=== PATIENT | female | born 1965 | race Caucasian/White ===

== ENCOUNTER → 2017-04-04 | Outpatient (CLI) | payer OTHER ==
[~2017-04-04] MED LIST: CLON0.5T3 PO; FAMO1TAB71 PO; IBUP-1459 PO; SERT50TA PO
[2017-04-04 12:56] LABS: ALT/SGPT 28 U/L (12-78); AST/SGOT 18 U/L (15-37); BLOOD UREA NITROGEN 14 mg/dl (7-18); BUN/CREATININE RATIO 15.9 (10-20); CALCIUM 9.1 mg/dl (8.5-10.1); CARBON DIOXIDE 29 mmol/L (21-32); CHLORIDE 111 mmol/L (98-107); CREATININE 0.91 mg/dl (0.60-1.20); GLUCOSE 101 mg/dl (70-99); POTASSIUM 4.2 mmol/L (3.5-5.1); SODIUM 142 mmol/L (136-145)
[2017-04-04 12:59] LABS: ALKALINE PHOSPHATASE 54 U/L (45-117); CHOLESTEROL 212 mg/dl (0-200); CHOLESTEROL/HDL RATIO 3.3; HDL CHOLESTEROL 65 mg/dl; LDL CHOLESTEROL CALCULATED 134 mg/dl; TRIGLYCERIDES 66 mg/dl (0-150); VERY LOW DENSITY LIPOPROT CALC 13 mg/dl
== END | disposition home or self-care (01) ==
LOC: C.LABBFT 08:21
PROVIDERS: ATTEND Nurse Practitioner
DX: E78.5 Hyperlipidemia, unspecified (principal); E55.9 Vitamin D deficiency, unspecified

== ENCOUNTER → 2017-11-12 | Outpatient (CLI) | payer OTHER ==
[~2017-11-12] MED LIST changes: +FAMO-103 PO; -FAMO1TAB71 PO
--- NOTE | 2017-11-12 09:19 | DIAGNOSTIC IMAGING REPORT ---
PELVIC COMPLETE NON OB, TRANSVAG-FEMALE PELVIS CLINICAL HISTORY: 52 years-old Female presenting with D25.9 Uterine [id number], history of remote D&C, no abnormal bleeding. TECHNIQUE: Real-time grayscale and color and spectral Doppler ultrasound imaging of the pelvis was performed first using a transabdominal probe and subsequently transvaginal for better characterization. COMPARISON: None. FINDINGS: Uterus: Round hypoechoic lesion arising from the right mid aspect of the uterus in a subserosal or peripheral intramural location, likely uterine fibroid. This measures 1.4 x 0.9 x 1.2 cm. Anteverted anteflexed. The uterus measures 5.5 x 2.5 x 3.7 cm. Endometrial stripe measures 2 mm in thickness. Endometrium normal-appearing. Right adnexa: The candidate right ovary measures 2.3 x 1.9 x 2.6 and contains numerous hyperechogenic foci. Apparent exophytic hypoechoic lesion arising from the right ovary measures 1.3 x 1.2 x 1.2 cm. Normal color Doppler flow and arterial and venous waveforms within the presumed ovarian parenchyma. Left adnexa: Left ovary normal. Left ovary measures 1.1 x 1.7 x 0.9 cm. Normal color Doppler flow and arterial and venous waveforms within the ovarian parenchyma. Other: No free fluid. IMPRESSION: 1. Small subserosal or peripheral intramural uterine fibroid. 2. Normal endometrium. 3. The right ovary may contain few foci of calcification. Less likely this may represent a nonperistalsing loop of bowel. Apparent exophytic right ovarian lesion is indeterminate and may be solid. Further evaluation with follow-up pelvic ultrasound in 4-6 weeks or contrast-enhanced MR of the pelvis could be considered. The report will be called/faxed according to standard departmental protocol. Electronically signed by: Peterson Dyer M.D. 11/12/2017 9:17 AM Dictated Date/Time: 11/12/2017 9:07 AM
== END | disposition home or self-care (01) ==
LOC: C.ULTR 08:02
PROVIDERS: ATTEND Nurse Practitioner
DX: D25.9 Leiomyoma of uterus, unspecified (principal)

== ENCOUNTER → 2017-11-12 | Outpatient (CLI) | payer OTHER | END | disposition home or self-care (01) | LOC: C.MAMM 08:53 | PROVIDERS: ATTEND Nurse Practitioner | DX: M85.88 Other specified disorders of bone density and structure, other site (principal) ==

== ENCOUNTER → 2017-11-14 | Outpatient (CLI) | payer OTHER ==
[~2017-11-14] MED LIST changes: +GADAVIST IV PRN
--- NOTE | 2017-11-14 09:33 | DIAGNOSTIC IMAGING REPORT ---
MRI THE PELVIS WITHOUT A WITH GADOLINIUM CLINICAL HISTORY: Abdominal ultrasound. Right ovarian lesion. COMPARISON STUDY: Pelvic ultrasound dated November 12, 2017 FINDINGS: Imaging was performed in the sagittal coronal and axial planes. Pre and post gadolinium images were acquired. The patient was injected with 9 cc of intravenous Gadavist. There are no suspicious areas of marrow replacement. The bladder is mildly trabeculated. There is no pathologic adenopathy. No ascites is visualized. The endometrium is of normal thickness. There is a 1 cm right myometrial mass, most consistent with a fibroid. There is a 2 cm T1 bright lesion within the right ovary. There is no fat suppression on the fat suppression images. The lesion demonstrates decreased T2 signal. The signal characteristics are suggestive of an endometrioma. No pathologic left ovarian masses are visualized. IMPRESSION: 1. 2 cm right ovarian mass with signal characteristics strongly suggestive of an endometrioma. A 6 month follow-up ultrasound study is recommended to ensure stability. 2. 1 cm right uterine fibroid 3. No evidence of pathologic adenopathy. No ascites identified. Electronically signed by: Timothy Polo M.D. 11/14/2017 9:32 AM Dictated Date/Time: 11/14/2017 9:25 AM
== END | disposition home or self-care (01) ==
LOC: C.MRI 08:07
PROVIDERS: ATTEND Nurse Practitioner
DX: N83.9 Noninflammatory disorder of ovary, fallopian tube and broad ligament, unspecified (principal); R93.5 Abnormal findings on diagnostic imaging of other abdominal regions, including retroperitoneum

== ENCOUNTER 2018-10-07 10:59 | Observation (INO) ==
[2018-10-07] MEDS ORDERED: SODIUM CHLORIDE 0.9% 1000ML 1,000 ML IV SCH (11:45)
[2018-10-07 12:24] LABS: Basophils # (auto) 0.01 K/uL (0-0.2); Hematocrit (blood only) 33.6 % (37-47); Hemoglobin 11.6 g/dL (12.0-16.0); Immature Granulocytes # (auto) 0.76 K/uL (0.00-0.02); Immature Granulocytes % (auto) 3.5 %; Lymphocytes # (auto) 0.43 K/uL (1.2-3.4); Mean Corpuscular Hgb Conc 34.5 g/dL (32-36); Mean Corpuscular Volume 94.1 fL (80-100); Mean Platelet Volume 9.5 fL (7.4-10.4); Monocytes # (auto) 0.24 K/uL (0.11-0.59); Monocytes % (auto) 1.1 %; Neutrophils % (auto) 93.4 %; Platelet Count 186 K/uL (130-400); RDW Coefficient of Variation 14.1 % (11.5-14.5); RDW Standard Deviation 48.8 fL (36.4-46.3); Red Blood Count 3.57 M/uL (4.2-5.4); White Blood Count 21.44 K/uL (4.8-10.8)
--- NOTE | 2018-10-07 12:26 | XRay Report ---
XR chest 1V portable CLINICAL HISTORY: Chest Pain pain COMPARISON STUDY: 09/20/2018 FINDINGS: Chronic elevation left hemidiaphragm. Lungs are clear. Diaphragms are smooth. IMPRESSION: Chronic change. No acute process. The above report was generated using voice recognition software. It may contain grammatical, syntax or spelling errors. Electronically signed by: Checo Mondragon M.D. 10/07/2018 12:25 PM
[2018-10-07 12:42] LABS: Alanine Aminotransferase 25 U/L (12-78); Albumin Level 3.1 gm/dl (3.4-5.0); Aspartate Aminotransferase 26 U/L (15-37); BUN Creatinine Ratio 17.4 (10-20); Blood Urea Nitrogen 14 mg/dl (7-18); Calcium 7.8 mg/dl (8.5-10.1); Carbon Dioxide 24 mmol/L (21-32); Chloride 103 mmol/L (98-107); Creatinine Clr Calc Pharmacy 98.8 ml/min; Est GFR (African American) 99.2; Est GFR (Non-African American) 85.6; Glucose 108 mg/dl (70-99); Potassium 3.3 mmol/L (3.5-5.1); Sodium 134 mmol/L (136-145)
[2018-10-07 12:47] LABS: Albumin Globulin Ratio 0.8 (0.9-2); Alkaline Phosphatase 74 U/L (45-117); Bilirubin,Total 0.5 mg/dl (0.2-1); Total Protein 7.1 gm/dl (6.4-8.2); Troponin I < 0.015 ng/ml (0-0.045)
[2018-10-07] MEDS ORDERED: SODIUM CHLORIDE 0.9% 1000ML 1,000 ML IV ONE (14:01)
[2018-10-07] MEDS ORDERED: IOVERSOL 100ml IV PRN (14:30)
--- NOTE | 2018-10-07 14:57 | Emergency Department Note ---
Entered by Kaylah Bates acting as a scribe for History of Present Illness General Chief complaint: Syncope Stated complaint: PASSED OUT, DIARRHEA, NAUSEA - REF BY Time Seen by Provider: 10/07/18 11:37 Source: patient Limitations: no limitations History of Present Illness Provider complaint: syncope Onset (ago): hour(s) Location: head Maximum Pain Intensity: 4 Associated symptoms: + denies other symptoms (burning or blood with urination), + cough, + fever/chills and + other (+diarrhea, +fatigue, +hallucinations); no nausea/vomiting Treatments prior to arrival: none The patient is a 53 year old female who presents to the Emergency Room with complaints of a syncopal episode that occurred hours prior to arrival while she was getting out of the shower. The patient states that she has fevers, cough, hallucinations, diarrhea, and fatigue. The patient denies any vomiting, burning or blood in urination. The patient states that she was diagnosed in July with ovarian cancer and states that she received chemotherapy treatment 3 days prior to arrival. The patient states that she took Neulasta 2 days prior to arrival and states that it made her whole body ache so she was then given Tramadol for the pain. The patient states that she last took Tramadol 1 day prior to arrival. The patient states that she had the flu 2 weeks prior to arrival and states that she was on antibiotics. The patient denies having a port. Home Medications Home Medications Medication Instructions Recorded Confirmed Type ascorbic acid (vitamin C) 500 mg PO DAILY 09/20/18 10/07/18 History bisacodyl 10 mg WV DAILY PRN 09/20/18 10/07/18 History cholecalciferol (vitamin D3) 1,000 unit PO DAILY 09/20/18 10/07/18 History cyanocobalamin (vitamin B-12) 1,000 mcg PO DAILY 09/20/18 10/07/18 History dexamethasone 5 tab PO DIRECTED 09/20/18 10/07/18 History lactulose 30 ml PO BID 09/20/18 10/07/18 History lorazepam 0.5 mg PO Q6H PRN 09/20/18 10/07/18 History magnesium 200 mg PO DAILY 09/20/18 10/07/18 History multivitamin 1 tab PO DAILY 09/20/18 10/07/18 History ondansetron 8 mg PO Q8H PRN 09/20/18 10/07/18 History polyethylene glycol 3350 17 g PO DAILY PRN 09/20/18 10/07/18 History prochlorperazine maleate 10 mg PO Q6H PRN 09/20/18 10/07/18 History [Compazine] sertraline 50 mg PO DAILY 09/20/18 10/07/18 History pegfilgrastim [Neulasta] 1 dose SUBCUT DIRECTED 10/07/18 10/07/18 History tramadol 50 mg PO Q6 PRN 10/07/18 10/07/18 History Allergies Allergy/AdvReac Type Severity Reaction Status Date / Time No Known Allergies Allergy Unverified 10/07/18 11:39 Past Med/Surg History Medical History Anxiety (Chronic) Hyperlipemia No significant past surgical history Ovarian cancer (Chronic) Family History Other No significant family history Social History Current Living Situation: Spouse Other Information That Helps Us Care for You: No Feels Safe at Home: Yes Safety Concerns: Feels Safe At This Time Smoking Status: Current every day smoker Hx Alcohol Use: No Hx Substance Use: No Beliefs That Will Affect Care: None Preferred Language: Slovak Communication Ability: Effective [employer] Heat [employer]der Required: No Review of Systems See HPI for pertinent positives & negatives. and A total of 10 systems reviewed and were otherwise negative Physical Exam Vital Signs Vital Signs - 24 hr 10/07/18 12:05 10/07/18 12:47 10/07/18 13:00 Temperature Temperature Source Pulse Rate 117 H 84 79 Pulse Rate [Bilateral Finger] Pulse Rate from SpO2 Sensor 80 Respiratory Rate 18 16 17 Respiratory Depth Blood Pressure 119/72 110/58 L Blood Pressure [Left Arm] Blood Pressure Mean 87 75 Blood Pressure Mean [Left Arm] Blood Pressure Position [Left Arm] Pulse Oximetry 95 92 91 Oxygen Delivery Method Room Air Room Air 10/07/18 13:30 10/07/18 14:00 10/07/18 15:31 Temperature Temperature Source Pulse Rate 80 86 81 Pulse Rate [Bilateral Finger] Pulse Rate from SpO2 Sensor 80 89 80 Respiratory Rate 20 18 22 Respiratory Depth Blood Pressure 124/58 L 117/73 136/85 Blood Pressure [Left Arm] Blood Pressure Mean 80 87 102 Blood Pressure Mean [Left Arm] Blood Pressure Position [Left Arm] Pulse Oximetry 93 96 93 Oxygen Delivery Method 10/07/18 16:01 10/07/18 16:31 10/07/18 17:01 Temperature Temperature Source Pulse Rate 79 80 82 Pulse Rate [Bilateral Finger] Pulse Rate from SpO2 Sensor 78 80 83 Respiratory Rate 18 19 18 Respiratory Depth Blood Pressure 133/79 147/81 H 148/85 H Blood Pressure [Left Arm] Blood Pressure Mean 97 103 106 Blood Pressure Mean [Left Arm] Blood Pressure Position [Left Arm] Pulse Oximetry 92 94 96 Oxygen Delivery Method Room Air 10/07/18 17:06 10/07/18 17:37 10/07/18 23:46 Temperature 36.8 C 37.3 C Temperature Source Oral Oral Pulse Rate 82 Pulse Rate [Bilateral Finger] 83 81 Pulse Rate from SpO2 Sensor Respiratory Rate 18 16 16 Respiratory Depth Normal Blood Pressure 148/85 H Blood Pressure [Left Arm] 137/74 144/75 H Blood Pressure Mean Blood Pressure Mean [Left Arm] 95 98 Blood Pressure Position [Left Arm] Lying Lying Pulse Oximetry 96 95 94 Oxygen Delivery Method Room Air Room Air Room Air 10/08/18 05:43 10/08/18 07:35 Temperature 36.9 C 36.6 C Temperature Source Oral Oral Pulse Rate Pulse Rate [Bilateral Finger] 86 78 Pulse Rate from SpO2 Sensor Respiratory Rate 20 18 Respiratory Depth Blood Pressure Blood Pressure [Left Arm] 145/78 H 138/80 Blood Pressure Mean Blood Pressure Mean [Left Arm] 100 99 Blood Pressure Position [Left Arm] Lying Pulse Oximetry 96 95 Oxygen Delivery Method Room Air Room Air General: Chronically-ill appearing middle-aged female in no acute distress. HEENT: Normal cephalic atraumatic. Pupils are equal round and reactive to light. Extraocular movements are intact. Oropharynx is pink with moist mucous membranes. No swelling of the mouth lips or tongue. Neck: Supple with a midline trachea. No meningeal signs or stiffness, no JVD or bruits. No Stridor. Chest: Clear to auscultation bilaterally. No wheezes or rhonchi. No increased work of breathing. Heart: regular rate and rhythm. Abdomen: Soft nontender, nondistended without rebound guarding or rigidity. Extremities: No cyanosis clubbing or edema. No calf tenderness or assymetry Spine/Back. Non tender to palpation. No CVA tenderness Skin: Good turgor without rashes. Neurologic exam: Cranial nerves two through 12 are intact. Motor and sensation are intact and symmetrical throughout. Course 1138: Past medical records reviewed. The patient was evaluated in room C8, and a complete history and physical examination were performed. 1225: I checked on and updated the patient on her results. The patient is feeling better but has a high white count. A CT of the abdomen was ordered. 1515: I [facility] the [facility] who will evaluate the patient for further hospitalization. Consultations Consultation #1[facility] Time: 15:15 Administered Medications Enoxaparin Sodium (Lovenox) 40 mg SQ Q24H TARI Stop: 11/07/18 08:59 Last Admin: 10/08/18 09:13 Dose: 40 mg Magnesium Oxide (Mag-Ox) 400 mg PO DAILY TARI Stop: 11/07/18 08:59 Last Admin: 10/08/18 08:19 Dose: 400 mg Ondansetron HCl (Zofran) 4 mg IV Q6H PRN PRN Reason: Nausea Stop: 11/06/18 17:27 Last Admin: 10/07/18 19:41 Dose: 4 mg Sertraline HCl (Zoloft) 50 mg PO HS TARI Stop: 11/06/18 21:14 Last Admin: 10/07/18 21:06 Dose: 50 mg Discontinued Medications Sodium Chloride (Nss 1000ml) 1,000 mls @ 999 mls/hr IV .Q1H1M TARI Stop: 10/07/18 12:45 Last Infusion: 10/07/18 13:53 Dose: 0 mls/hr Admin: 10/07/18 12:45 Dose: 999 mls/hr Sodium Chloride (Nss 1000ml) 1,000 mls @ 999 mls/hr IV .Q1H1M ONE Stop: 10/07/18 15:01 Last Infusion: 10/07/18 15:27 Dose: 0 mls/hr Admin: 10/07/18 14:17 Dose: 999 mls/hr Sodium Chloride (Nss 1000ml) 1,000 mls @ 125 mls/hr IV .Q8H TARI Stop: 10/08/18 09:27 Last Infusion: 10/08/18 09:20 Dose: 0 mls/hr Admin: 10/08/18 01:00 Dose: 125 mls/hr Infusion: 10/08/18 01:00 Dose: 125 mls/hr Admin: 10/07/18 17:59 Dose: 125 mls/hr Ioversol (Optiray 320 100ml) 94 ml IV ONCE PRN PRN Reason: Interaction Checking Stop: 10/11/18 14:29 Last Admin: 10/07/18 14:31 Dose: 94 ml Medical Decision Making Differential Diagnosis The patient is a 53 year old female who presents to the ED with syncope. Differential diagnosis includes dehydration, clostridium difficile, cancer complications, sepsis, electrolyte or metabolic abnormalities Medical Records Attestation: I reviewed the patient's medical records. Home Medications Current Medication List: was personally reviewed by me Laboratory Data Attestation: I reviewed the patient's lab results. Result diagrams: 10/08/18 06:21 10/08/18 06:21 Lab Results 10/07/18 10/07/18 10/07/18 Range/Units 12:09 12:09 12:09 WBC 21.44 H (4.8-10.8) K/uL RBC 3.57 L (4.2-5.4) M/uL Hgb 11.6 L (12.0-16.0) g/dL Hct 33.6 L (37-47) % MCV 94.1 (80-100) fL MCH 32.5 (25-34) pg MCHC 34.5 (32-36) g/dL RDW Std Deviation 48.8 H (36.4-46.3) fL RDW Coeff of Haim 14.1 (11.5-14.5) % Plt Count 186 (130-400) K/uL MPV 9.5 (7.4-10.4) fL Immature Gran % (Auto) 3.5 % Neut % (Auto) 93.4 % Lymph % (Auto) 2.0 % Mcmullen % (Auto) 1.1 % Eos % (Auto) 0.0 % Baso % (Auto) 0.0 % Immature Gran # (Auto) 0.76 H (0.00-0.02) K/uL Neut # (Auto) 20.00 H (1.4-6.5) K/uL Lymph # (Auto) 0.43 L (1.2-3.4) K/uL Mcmullen # (Auto) 0.24 (0.11-0.59) K/uL Eos # (Auto) 0.00 (0-0.5) K/uL Baso # (Auto) 0.01 (0-0.2) K/uL PT (9.0-12.0) Seconds INR (0.9-1.1) APTT (21.0-31.0) Seconds PTT Ratio Sodium 134 L (136-145) mmol/L Potassium 3.3 L (3.5-5.1) mmol/L Chloride 103 (98-107) mmol/L Carbon Dioxide 24 (21-32) mmol/L Anion Gap 7.0 (3-11) BUN 14 (7-18) mg/dl Creatinine 0.78 (0.6-1.2) mg/dl Est Cr Clr Drug Dosing 98.8 ml/min Est GFR ( Amer) 99.2 Est GFR (Non-Af Amer) 85.6 BUN/Creatinine Ratio 17.4 (10-20) Glucose 108 H (70-99) mg/dl POC Lactic Acid Nicolás (0.90-1.70) mmol/L Calcium 7.8 L (8.5-10.1) mg/dl Phosphorus 2.5 Cancelled (2.5-4.9) mg/dl Magnesium 2.1 Cancelled (1.8-2.4) mg/dl Total Bilirubin 0.5 (0.2-1) mg/dl AST 26 (15-37) U/L ALT 25 (12-78) U/L Alkaline Phosphatase 74 (45-117) U/L Troponin I < 0.015 (0-0.045) ng/ml Total Protein 7.1 (6.4-8.2) gm/dl Albumin 3.1 L (3.4-5.0) gm/dl Globulin 4.0 (2.5-4.0) gm/dl Albumin/Globulin Ratio 0.8 L (0.9-2) Lipase 54 L (73-393) U/L 10/07/18 10/08/18 10/08/18 Range/Units 12:18 06:21 06:21 WBC 16.53 H (4.8-10.8) K/uL RBC 3.37 L (4.2-5.4) M/uL Hgb 10.9 L (12.0-16.0) g/dL Hct 31.6 L (37-47) % MCV 93.8 (80-100) fL MCH 32.3 (25-34) pg MCHC 34.5 (32-36) g/dL RDW Std Deviation 49.5 H (36.4-46.3) fL RDW Coeff of Haim 14.4 (11.5-14.5) % Plt Count 145 (130-400) K/uL MPV 9.7 (7.4-10.4) fL Immature Gran % (Auto) 0.8 % Neut % (Auto) 93.5 % Lymph % (Auto) 4.5 % Mcmullen % (Auto) 0.8 % Eos % (Auto) 0.3 % Baso % (Auto) 0.1 % Immature Gran # (Auto) 0.14 H (0.00-0.02) K/uL Neut # (Auto) 15.44 H (1.4-6.5) K/uL Lymph # (Auto) 0.75 L (1.2-3.4) K/uL Mcmullen # (Auto) 0.14 (0.11-0.59) K/uL Eos # (Auto) 0.05 (0-0.5) K/uL Baso # (Auto) 0.01 (0-0.2) K/uL PT (9.0-12.0) Seconds INR (0.9-1.1) APTT (21.0-31.0) Seconds PTT Ratio Sodium 139 (136-145) mmol/L Potassium 3.5 (3.5-5.1) mmol/L Chloride 110 H (98-107) mmol/L Carbon Dioxide 25 (21-32) mmol/L Anion Gap 4.0 (3-11) BUN 10 (7-18) mg/dl Creatinine 0.61 (0.6-1.2) mg/dl Est Cr Clr Drug Dosing 127.3 ml/min Est GFR ( Amer) 118.3 Est GFR (Non-Af Amer) 102.1 BUN/Creatinine Ratio 16.1 (10-20) Glucose 98 (70-99) mg/dl POC Lactic Acid Nicolás 0.86 L (0.90-1.70) mmol/L Calcium 7.8 L (8.5-10.1) mg/dl Phosphorus (2.5-4.9) mg/dl Magnesium (1.8-2.4) mg/dl Total Bilirubin (0.2-1) mg/dl AST (15-37) U/L ALT (12-78) U/L Alkaline Phosphatase (45-117) U/L Troponin I (0-0.045) ng/ml Total Protein (6.4-8.2) gm/dl Albumin (3.4-5.0) gm/dl Globulin (2.5-4.0) gm/dl Albumin/Globulin Ratio (0.9-2) Lipase (73-393) U/L 10/08/18 Range/Units 06:21 WBC (4.8-10.8) K/uL RBC (4.2-5.4) M/uL Hgb (12.0-16.0) g/dL Hct (37-47) % MCV (80-100) fL MCH (25-34) pg MCHC (32-36) g/dL RDW Std Deviation (36.4-46.3) fL RDW Coeff of Haim (11.5-14.5) % Plt Count (130-400) K/uL MPV (7.4-10.4) fL Immature Gran % (Auto) % Neut % (Auto) % Lymph % (Auto) % Mcmullen % (Auto) % Eos % (Auto) % Baso % (Auto) % Immature Gran # (Auto) (0.00-0.02) K/uL Neut # (Auto) (1.4-6.5) K/uL Lymph # (Auto) (1.2-3.4) K/uL Mcmullen # (Auto) (0.11-0.59) K/uL Eos # (Auto) (0-0.5) K/uL Baso # (Auto) (0-0.2) K/uL PT 10.8 (9.0-12.0) Seconds INR 1.1 (0.9-1.1) APTT 26.5 (21.0-31.0) Seconds PTT Ratio 1.0 Sodium (136-145) mmol/L Potassium (3.5-5.1) mmol/L Chloride (98-107) mmol/L Carbon Dioxide (21-32) mmol/L Anion Gap (3-11) BUN (7-18) mg/dl Creatinine (0.6-1.2) mg/dl Est Cr Clr Drug Dosing ml/min Est GFR ( Amer) Est GFR (Non-Af Amer) BUN/Creatinine Ratio (10-20) Glucose (70-99) mg/dl POC Lactic Acid Nicolás (0.90-1.70) mmol/L Calcium (8.5-10.1) mg/dl Phosphorus (2.5-4.9) mg/dl Magnesium (1.8-2.4) mg/dl Total Bilirubin (0.2-1) mg/dl AST (15-37) U/L ALT (12-78) U/L Alkaline Phosphatase (45-117) U/L Troponin I (0-0.045) ng/ml Total Protein (6.4-8.2) gm/dl Albumin (3.4-5.0) gm/dl Globulin (2.5-4.0) gm/dl Albumin/Globulin Ratio (0.9-2) Lipase (73-393) U/L Imaging Data Radiologist's Impression: Radiology results as stated below per my review and the radiologist's interpretation: XR chest 1V portable CLINICAL HISTORY: Chest Pain pain COMPARISON STUDY: 09/20/2018 FINDINGS: Chronic elevation left hemidiaphragm. Lungs are clear. Diaphragms are smooth. IMPRESSION: Chronic change. No acute process. The above report was generated using voice recognition software. It may contain grammatical, syntax or spelling errors. Electronically signed by: Checo Mondragon M.D. 10/07/2018 12:25 PM ECG Data Attestation: I personally reviewed and interpreted this ECG as follows: Indication: syncope Rate (beats per minute): 87 Findings: no acute ischemic change and no ectopy Comparison ECG Date: from (07/14/15) Change: no significant change Blood Pressure Blood Pressure Findings: Normal blood pressure MDM Narrative This patient comes in as described above. She was placed in room C8. She is here for treatment and evaluation of nausea vomiting and diarrhea. She does have ovarian cancer and was recently started on chemo. She says she felt bad after taking the last and then took some pain medications with Ultram and started vomiting she had diarrhea she passed out at home as well. She denies any chest pain. She denies abdominal pain. IV access was established and she was hydrated 2 L IV normal saline while she was here she looks better . I was concerned white count is significantly elevated over 20,000. This may be from stress or Neulasta. She has no significant electrolyte or metabolic abnormalities her EKG does not suggest any definite arrhythmia or acute coronary syndrome. She did have a CAT scan of her abdomen as well and shows an ileus but no obstruction or surgical process. Given the fact that she is being treated for cancer as well as had a syncopal episode and has a high white count I do think she should be observed. I do think she is dehydrated likely from a GI process. I have consulted the hospitalist to see her for these measures per Impression & Plan Syncope, Dehydration, Ovarian cancer, Diarrhea Discharge Plan Visit Data *Final* Discharge Date/Time: 10/07/18 17:06 Chief Complaint: Syncope Stated Complaint: PASSED OUT, DIARRHEA, NAUSEA - REF BY ED Provider: Martin Zapata Discharge Problem: Syncope, Dehydration, Ovarian cancer, Diarrhea Patient Disposition: Admitted As Inpatient Discharge Instructions Interventions: ED Discharge Assessment Last Done: 10/07/18 17:06 The scribe's documentation has been prepared under my direction and personally reviewed by me in its entirety. I confirm that the note above accurately reflects all work, treatment, procedures, and medical decision making performed by me.
--- NOTE | 2018-10-07 14:58 | CT Scan Report ---
ABDOMEN AND PELVIS CT WITH IV CONTRAST CT DOSE: 720.47 mGy.cm HISTORY: Acute sepsis eval for infection TECHNIQUE: Multiaxial CT images of the abdomen and pelvis were performed following the use of intrave nous contrast. A dose lowering technique was utilized adhering to the principles of ALARA. COMPARISON STUDY: Pelvic MRI 11/14/2017. FINDINGS: Moderate left hemidiaphragmatic elevation with subsegmental left basilar consolidation suggestive of atelectasis/scarring. Right lung base is generally clear. There is no pneumatosis or pneumoperitoneum identified. Coronary arterial calcifications are noted. The imaged inferior cardiac chambers are oth erwise unremarkable. Gallbladder, liver, spleen, pancreas and right adrenal gland are unremarkable. Mild thickening about the left adrenal gland. The bilateral kidneys,, and ureters are unremarkable. Mild urinary bladder di stention. Adnexa appear unremarkable. Calcified right uterine fibroid measures 9 mm. Calcification of the aorta without aneurysm. Retroaortic left renal vein. No adenopathy. No bowel obstruction. No def inite bowel wall thickening. Multiple scattered nondilated loops of small bowel demonstrate air-fluid levels. Tortuous sigmoid colon. The appendix is air-filled and appears normal. No ascites or mesente vinicius inflammation. The breast parenchyma and soft tissues are unremarkable. Multilevel spondylitic spurring with facet a rthropathy and intervertebral disc space narrowing. Moderate disc space narrowing at L4-L5. Multileve l posterior disc osteophyte complex formation, most pronounced at L5-S1. IMPRESSION: 1. No bowel junction or focal bowel wall thickening. Normal appendix. 2. Multiple nondilated loops of small bowel are fluid-filled with scattered air-fluid levels. Finding s may be physiologic or reflect a mild enteritis or ileus. Correlate clinically. 3. Moderate left hemidiaphragm elevation with left basilar atelectasis/scarring. 4. Coronary arterial calcifications. 5. Additional findings as above. Electronically signed by: Harshad Christianson M.D. 10/07/2018 2:56 PM
[2018-10-07] MEDS ORDERED: LORazepam 0.5 MG TAB PO PRN (17:28)
[2018-10-07] MEDS ORDERED: ONDANSETRON INJ 2 MG/ML 2 ML VIAL IV PRN (17:28)
[2018-10-07] MEDS ORDERED: PROCHLORPERAZINE MALEATE 10 MG TAB PO PRN (17:28)
[2018-10-07] MEDS ORDERED: ACETAMINOPHEN 325 MG TAB PO PRN (17:28)
[2018-10-07 17:58] LABS: Magnesium 2.1 mg/dl (1.8-2.4); Phosphorus 2.5 mg/dl (2.5-4.9)
[2018-10-07] MEDS: SODIUM CHLORIDE 0.9% 1000ML 1,000 ML IV SCH (17:59)
--- NOTE | 2018-10-07 21:05 | History & Physical Report ---
Date of Service October 07, 2018 Assessment & Plan (1) Diarrhea: Infectious vs chemotherapy induced vs medication induced (patient took laxatives/stool softeners as well). ?enteritis noted on CT. -Check stool for c.diff and culture -Stool leukocytes -Monitor I/Os -No antibiotics at this time (2) Leukocytosis: Neutrophil predominant. Patient afebrile, hemodynamically stable. ? infectious/inflammatory source - enteritis vs steroid effects -Follow culutres -Continue to monitor for evidence of infection -CBC in AM (3) Syncope: Patient with what seems to be vasovagal syncope. Labs unremarkable. EKG normal. -Hydration -Fall precautions -Continue to monitor (4) Ovarian cancer: Patient receiving chemotherapy, follows with Oncology. -Symptom management, Zofran and Prochlorperazine -Tylenol PRN (5) Anxiety: Stable -Continue Sertraline -Continue Ativan PRN F/E/N - NSS at 125mL/hr x 2 liters, monitor electrolytes, continue PO Magnesium supplementation, regular diet as tolerated Ppx - Lovenox for DVT prophylaxis Code - Full per discussion with patient Dispo - Observation to medical floor History of Present Illness Chief Complaint: syncope Primary Care Provider: Domo Yu MD Patient is a 53yo female with history of ovarian cancer on chemotherapy ( Carboplatin/Taxol). She received her second chemotherapy treatment on 10/04/18 and had Neulasta on 10/05/18. Yesterday she began to feel quite ill - nausea, chills, sweats, body aches, poor appetite as well as 3 episodes of watery diarrhea. Reported to be dark green, foul smelling. No blood or mucus. + diffuse abdominal pain and bloating. She states that she felt very sleepy and "woozy" and thought she may have been hallucinating as well. The sleepiness and confusion began after taking Tramadol. Patient had an episode of syncope this AM. She was in the shower and remembers feeling "really weird". Her was helping her dry off when she slumped to the floor. She was out for 5-10 seconds. No CP/palpitations/seizure activity. Per review of outpatient records patient felt ill after receiving her first cycle of chemotherapy, specifically on day 3 and 4 after receiving Neulasta. She had bone pain and flu-like symptoms as well as constipation. Allergies Allergy/AdvReac Type Severity Reaction Status Date / Time No Known Allergies Allergy Unverified 10/07/18 11:39 Home Medications Home Medications Medication Instructions Recorded Confirmed Type ascorbic acid (vitamin C) 500 mg PO DAILY 09/20/18 10/07/18 History bisacodyl 10 mg MS DAILY PRN 09/20/18 10/07/18 History cholecalciferol (vitamin D3) 1,000 unit PO DAILY 09/20/18 10/07/18 History cyanocobalamin (vitamin B-12) 1,000 mcg PO DAILY 09/20/18 10/07/18 History dexamethasone 5 tab PO DIRECTED 09/20/18 10/07/18 History lactulose 30 ml PO BID 09/20/18 10/07/18 History lorazepam 0.5 mg PO Q6H PRN 09/20/18 10/07/18 History magnesium 200 mg PO DAILY 09/20/18 10/07/18 History multivitamin 1 tab PO DAILY 09/20/18 10/07/18 History ondansetron 8 mg PO Q8H PRN 09/20/18 10/07/18 History polyethylene glycol 3350 17 g PO DAILY PRN 09/20/18 10/07/18 History prochlorperazine maleate 10 mg PO Q6H PRN 09/20/18 10/07/18 History [Compazine] sertraline 50 mg PO DAILY 09/20/18 10/07/18 History pegfilgrastim [Neulasta] 1 dose SUBCUT DIRECTED 10/07/18 10/07/18 History tramadol 50 mg PO Q6 PRN 10/07/18 10/07/18 History Past Med/Surg History Medical History Anxiety (Chronic) Hyperlipemia No significant past surgical history Ovarian cancer (Chronic) Family History Other No significant family history Social History Current Living Situation: Spouse Other Information That Helps Us Care for You: No Feels Safe at Home: Yes Safety Concerns: Feels Safe At This Time Smoking Status: Current every day smoker Hx Alcohol Use: No Hx Substance Use: No Beliefs That Will Affect Care: None Preferred Language: Ukrainian Communication Ability: Effective Priming Mixture Carrier Required: No Review of Systems All systems reviewed & are unremarkable except as noted in HPI & below Poor appetite Subjective fevers Physical Exam 2 Vital Signs (Past 24 Hours): Last Vital Signs Temp 36.8 C 10/07/18 17:37 Pulse 83 10/07/18 17:37 Resp 16 10/07/18 17:37 BP 137/74 10/07/18 17:37 Pulse Ox 95 10/07/18 17:37 Physical Exam: General: patient resting comfortably, NAD, ill in appearance, AA&O x 4 Skin: warm, dry, intact, no rashes or lesions HEENT: NC/AT, PERRL, EOMI, anicteric sclera, conjunctiva without injection, external ear normal to inspection and nontender, nares patent, moist mucus membranes, dentition intact, no oropharyngeal lesions, neck supple, trachea midline, no LAD, no thyromegaly, no JVD Heart: +S1/S2, regular, no m/r/g Lungs: equal air entry bilaterally, no rales/rhonchi/wheezes Abd: +BS, soft, ND, diffusely tender with deep palpation, no rebound/guarding/ peritoneal signs, no masses/organomegaly/ascites Ext: warm, 2+ pulses in UE/LE bilaterally, no clubbing/cyanosis or edema Neuro: nonfocal, patient AA&O x 4, speech intact, no facial droop, moving all extremities on command with equal strength 5/5 Results & Data Laboratory Results Lab Results 10/07/18 10/07/18 10/07/18 Range/Units 12:09 12:09 12:09 WBC 21.44 H (4.8-10.8) K/uL RBC 3.57 L (4.2-5.4) M/uL Hgb 11.6 L (12.0-16.0) g/dL Hct 33.6 L (37-47) % MCV 94.1 (80-100) fL MCH 32.5 (25-34) pg MCHC 34.5 (32-36) g/dL RDW Std Deviation 48.8 H (36.4-46.3) fL RDW Coeff of Haim 14.1 (11.5-14.5) % Plt Count 186 (130-400) K/uL MPV 9.5 (7.4-10.4) fL Immature Gran % (Auto) 3.5 % Neut % (Auto) 93.4 % Lymph % (Auto) 2.0 % Gillespie % (Auto) 1.1 % Eos % (Auto) 0.0 % Baso % (Auto) 0.0 % Immature Gran # (Auto) 0.76 H (0.00-0.02) K/uL Neut # (Auto) 20.00 H (1.4-6.5) K/uL Lymph # (Auto) 0.43 L (1.2-3.4) K/uL Gillespie # (Auto) 0.24 (0.11-0.59) K/uL Eos # (Auto) 0.00 (0-0.5) K/uL Baso # (Auto) 0.01 (0-0.2) K/uL Sodium 134 L (136-145) mmol/L Potassium 3.3 L (3.5-5.1) mmol/L Chloride 103 (98-107) mmol/L Carbon Dioxide 24 (21-32) mmol/L Anion Gap 7.0 (3-11) BUN 14 (7-18) mg/dl Creatinine 0.78 (0.6-1.2) mg/dl Est Cr Clr Drug Dosing 98.8 ml/min Est GFR ( Amer) 99.2 Est GFR (Non-Af Amer) 85.6 BUN/Creatinine Ratio 17.4 (10-20) Glucose 108 H (70-99) mg/dl POC Lactic Acid Nicolás (0.90-1.70) mmol/L Calcium 7.8 L (8.5-10.1) mg/dl Phosphorus 2.5 Cancelled (2.5-4.9) mg/dl Magnesium 2.1 Cancelled (1.8-2.4) mg/dl Total Bilirubin 0.5 (0.2-1) mg/dl AST 26 (15-37) U/L ALT 25 (12-78) U/L Alkaline Phosphatase 74 (45-117) U/L Troponin I < 0.015 (0-0.045) ng/ml Total Protein 7.1 (6.4-8.2) gm/dl Albumin 3.1 L (3.4-5.0) gm/dl Globulin 4.0 (2.5-4.0) gm/dl Albumin/Globulin Ratio 0.8 L (0.9-2) Lipase 54 L (73-393) U/L 02/25/19 Range/Units 12:18 WBC (4.8-10.8) K/uL RBC (4.2-5.4) M/uL Hgb (12.0-16.0) g/dL Hct (37-47) % MCV (80-100) fL MCH (25-34) pg MCHC (32-36) g/dL RDW Std Deviation (36.4-46.3) fL RDW Coeff of Haim (11.5-14.5) % Plt Count (130-400) K/uL MPV (7.4-10.4) fL Immature Gran % (Auto) % Neut % (Auto) % Lymph % (Auto) % Gillespie % (Auto) % Eos % (Auto) % Baso % (Auto) % Immature Gran # (Auto) (0.00-0.02) K/uL Neut # (Auto) (1.4-6.5) K/uL Lymph # (Auto) (1.2-3.4) K/uL Gillespie # (Auto) (0.11-0.59) K/uL Eos # (Auto) (0-0.5) K/uL Baso # (Auto) (0-0.2) K/uL Sodium (136-145) mmol/L Potassium (3.5-5.1) mmol/L Chloride (98-107) mmol/L Carbon Dioxide (21-32) mmol/L Anion Gap (3-11) BUN (7-18) mg/dl Creatinine (0.6-1.2) mg/dl Est Cr Clr Drug Dosing ml/min Est GFR ( Amer) Est GFR (Non-Af Amer) BUN/Creatinine Ratio (10-20) Glucose (70-99) mg/dl POC Lactic Acid Nicolás 0.86 L (0.90-1.70) mmol/L Calcium (8.5-10.1) mg/dl Phosphorus (2.5-4.9) mg/dl Magnesium (1.8-2.4) mg/dl Total Bilirubin (0.2-1) mg/dl AST (15-37) U/L ALT (12-78) U/L Alkaline Phosphatase (45-117) U/L Troponin I (0-0.045) ng/ml Total Protein (6.4-8.2) gm/dl Albumin (3.4-5.0) gm/dl Globulin (2.5-4.0) gm/dl Albumin/Globulin Ratio (0.9-2) Lipase (73-393) U/L Diagnostic Findings XR chest 1V portable CLINICAL HISTORY: Chest Pain pain COMPARISON STUDY: 09/20/2018 FINDINGS: Chronic elevation left hemidiaphragm. Lungs are clear. Diaphragms are smooth. IMPRESSION: Chronic change. No acute process. The above report was generated using voice recognition software. It may contain grammatical, syntax or spelling errors. Electronically signed by: Checo Mondragon M.D. 10/07/2018 12:25 PM Dictated: 10/07/18 1225 Transcribed: 10/07/18 [address] WITH IV CONTRAST CT DOSE: 720.47 mGy.cm HISTORY: Acute sepsis eval for infection TECHNIQUE: Multiaxial CT images of the abdomen and pelvis were performed following the use of intravenous contrast. A dose lowering technique was utilized adhering to the principles of ALARA. COMPARISON STUDY: Pelvic MRI 11/14/2017. FINDINGS: Moderate left hemidiaphragmatic elevation with subsegmental left basilar consolidation suggestive of atelectasis/scarring. Right lung base is generally clear. There is no pneumatosis or pneumoperitoneum identified. Coronary arterial calcifications are noted. The imaged inferior cardiac chambers are otherwise unremarkable. Gallbladder, liver, spleen, pancreas and right adrenal gland are unremarkable. Mild thickening about the left adrenal gland. The bilateral kidneys,, and ureters are unremarkable. Mild urinary bladder distention. Adnexa appear unremarkable. Calcified right uterine fibroid measures 9 mm. Calcification of the aorta without aneurysm. Retroaortic left renal vein. No adenopathy. No bowel obstruction. No definite bowel wall thickening. Multiple scattered nondilated loops of small bowel demonstrate air-fluid levels. Tortuous sigmoid colon. The appendix is air-filled and appears normal. No ascites or mesenteric inflammation. The breast parenchyma and soft tissues are unremarkable. Multilevel spondylitic spurring with facet arthropathy and intervertebral disc space narrowing. Moderate disc space narrowing at L4-L5. Multilevel posterior disc osteophyte complex formation, most pronounced at L5-S1. IMPRESSION: 1. No bowel junction or focal bowel wall thickening. Normal appendix. 2. Multiple nondilated loops of small bowel are fluid-filled with scattered air- fluid levels. Findings may be physiologic or reflect a mild enteritis or ileus. Correlate clinically. 3. Moderate left hemidiaphragm elevation with left basilar atelectasis/scarring. 4. Coronary arterial calcifications. 5. Additional findings as above. Electronically signed by: Harshad Christianson M.D. 10/07/2018 2:56 PM Dictated: 10/07/18 1442 Transcribed: 10/07/18 1442 ECG Additional Comments: The study shows NSR at 87bpm, normal axis, DR=942, QRS=92, JXc=497, no evidence of acute ischemia Code Status & VTE Plan Code Status Full VTE Prophylaxis Plan VTE Prophylaxis will be ordered: Yes Critical Care Time Critical Care Time: No _ (1) Diarrhea Diarrhea type: unspecified type Qualified Code(s): R19.7 - Diarrhea, unspecified (2) Leukocytosis Leukocytosis type: unspecified Qualified Code(s): D72.829 - Elevated white blood cell count, unspecified (3) Syncope Encounter type: Syncope type: unspecified Qualified Code(s): R55 - Syncope and collapse (4) Ovarian cancer Laterality: unspecified laterality Qualified Code(s): C56.9 - Malignant neoplasm of unspecified ovary
[2018-10-07] MEDS ORDERED: SERTRALINE HCL 50 MG TABLET PO SCH (21:15)
[2018-10-08] MEDS: SODIUM CHLORIDE 0.9% 1000ML 1,000 ML IV SCH (01:00)
[2018-10-08 06:47] LABS: Hematocrit (blood only) 31.6 % (37-47); Hemoglobin 10.9 g/dL (12.0-16.0); Mean Corpuscular Hgb Conc 34.5 g/dL (32-36); Mean Corpuscular Volume 93.8 fL (80-100); Mean Platelet Volume 9.7 fL (7.4-10.4); Platelet Count 145 K/uL (130-400); RDW Coefficient of Variation 14.4 % (11.5-14.5); RDW Standard Deviation 49.5 fL (36.4-46.3); Red Blood Count 3.37 M/uL (4.2-5.4); White Blood Count 16.53 K/uL (4.8-10.8)
[2018-10-08 06:59] LABS: INR 1.1 (0.9-1.1); Partial Thromboplastin Time 26.5 Seconds (21.0-31.0); Prothrombin Time 10.8 Seconds (9.0-12.0)
[2018-10-08 07:16] LABS: Basophils # (auto) 0.01 K/uL (0-0.2); Basophils % (auto) 0.1 %; Eosinophils # (auto) 0.05 K/uL (0-0.5); Eosinophils % (auto) 0.3 %; Immature Granulocytes # (auto) 0.14 K/uL (0.00-0.02); Immature Granulocytes % (auto) 0.8 %; Lymphocytes # (auto) 0.75 K/uL (1.2-3.4); Lymphocytes % (auto) 4.5 %; Monocytes # (auto) 0.14 K/uL (0.11-0.59); Monocytes % (auto) 0.8 %; Neutrophils # (auto) 15.44 K/uL (1.4-6.5); Neutrophils % (auto) 93.5 %
[2018-10-08 07:20] LABS: BUN Creatinine Ratio 16.1 (10-20); Calcium 7.8 mg/dl (8.5-10.1); Creatinine Clr Calc Pharmacy 127.3 ml/min; Est GFR (African American) 118.3; Est GFR (Non-African American) 102.1; Potassium 3.5 mmol/L (3.5-5.1)
[2018-10-08] MEDS ORDERED: SERTRALINE HCL 50 MG TABLET PO SCH (09:00)
[2018-10-08] MEDS ORDERED: ENOXAPARIN INJ 40 MG/0.4 ML SYR SQ SCH (09:00)
[2018-10-08] MEDS ORDERED: MAGNESIUM OXIDE 400 MG TAB PO SCH (09:00)
--- NOTE | 2018-10-08 12:06 | Hospitalist Progress Note ---
Date of Service October 08, 2018 Assessment & Plan (1) Syncope: EKG without abnormalities Bilateral carotid duplex negative for significant stenosis Echocardiogram with no significant cardiomyopathy or valvular disease Episode appears to be vasovagal May be associated with chemotherapy and Neulasta Advised patient to discuss with her oncologist (2) Diarrhea: No diarrhea for several days No melena or hematochezia No abdominal pain (3) Leukocytosis: No evidence of infection Most likely secondary to Neulasta administered 10/05/2018 Continue to follow outpatient with oncology (4) Dehydration: Patient is 4 L positive since admission Patient was ill and had diarrhea prior to admission Advised patient to continue with adequate oral intake No evidence of renal failure (5) Ovarian cancer: Completed second course of chemotherapy and received Neulasta 10/05/2018 Surgical resection with bilateral salpingo-oophorectomy Further management with outpatient oncology Supervising Physician Co-Signing Physician Notes Patient seen and examined, chart reviewed, case discussed with GERMAINE Plasencia and I agree with his assessment and plan as above. Patient doing well this AM. Still with some abdominal discomfort and gas. No further diarrhea. On exam she is afebrile, VSS Gen: nontoxic in appearance Skin: intact, no rash HEENT: NC/AT, PERRL, MMM, neck supple Heart: +S1/S2, regular, no m/r/g Lungs: CTA, no rales/rhonchi/wheezes Abd: +BS, soft, mildly tender with deep palpation, no rebound/guarding Ext: no edema Labs and images reviewed. Assessment/Plan: Syncope - carotid duplex performed, +athersclerosis, no significant stenosis. Echo with small area of decreased WM in posterior segment -recommend followup as an outpatient Diarrhea - improved. Leukocytosis - afebrile, HD stable, no infection Remainder of plan as above Subjective This is a 53 yo female that was admitted yesterday with diarrhea and a syncopal episode at home. She was recently diagnosed with ovarian cancer and had bilateral salpingooperectomy with prophylactic chemotherapy X 2 doses. She completed her second course and received her Neulasta on 10/05/18. She was previously admitted 09/20/18 and found to have Influenza Type A. Since admission, she is 4077 mL positive and is feeling much better. She does however still feel "woozy" but has had no further episodes of syncope or pre- syncope. She is afebrile and is not neutropenic. She has had no bowel movements since admission and has no significant abdominal pain. Physical Exam 2 Vital Signs (Past 24 Hours): Last Vital Signs Temp 36.6 C 10/08/18 07:35 Pulse 78 10/08/18 07:35 Resp 18 10/08/18 07:35 BP 138/80 10/08/18 07:35 Pulse Ox 95 10/08/18 07:35 Physical Exam: GENERAL : No acute distress EYES: No icterus, gaze conjugate NOSE: No evidence of epistaxis MOUTH: No lesions or candidiasis NECK: Supple. No carotid bruits. No stridor. No JVD. LUNGS: CTA B/L, no wheezes, rales or rhonchi HEART: Regular, rate controlled. ABDOMEN: Soft, NT, ND, BS Present. No rebound tenderness or guarding to deep palpation. EXTREMITIES: No LE edema, pedal pulses intact NEURO: A&OX3 Results & Data Laboratory Results Abnormal lab results 10/07/18 10/08/18 10/08/18 Range/Units 12:09 06:21 06:21 WBC 16.53 H (4.8-10.8) K/uL RBC 3.37 L (4.2-5.4) M/uL Hgb 10.9 L (12.0-16.0) g/dL Hct 31.6 L (37-47) % RDW Std Deviation 49.5 H (36.4-46.3) fL Immature Gran # (Auto) 0.14 H (0.00-0.02) K/uL Neut # (Auto) 15.44 H (1.4-6.5) K/uL Lymph # (Auto) 0.75 L (1.2-3.4) K/uL Sodium 134 L (136-145) mmol/L Potassium 3.3 L (3.5-5.1) mmol/L Chloride 110 H (98-107) mmol/L Glucose 108 H (70-99) mg/dl Calcium 7.8 L 7.8 L (8.5-10.1) mg/dl Albumin 3.1 L (3.4-5.0) gm/dl Albumin/Globulin Ratio 0.8 L (0.9-2) Lipase 54 L (73-393) U/L Diagnostic Findings US carotid doppler BI CLINICAL HISTORY: 53 years-old Female presenting with Syncope / Collapse. TECHNIQUE: Real-time grayscale and color and spectral Doppler ultrasound imaging of the bilateral carotid arteries was performed. Stenosis measurements were based on NASCET-like criteria (distal lumen diameter as the denominator for stenosis measurement). COMPARISON: None. FINDINGS: RIGHT: Common carotid artery (CCA): Atherosclerosis. Peak systolic velocity (PSV) 78 cm /s. Internal carotid artery (ICA): Atherosclerosis of the proximal ICA. PSV 79 cm/ s. End diastolic velocity (EDV) 31 cm/s. ICA/CCA (systolic) ratio: 1.0. External carotid artery (ECA): Patent. PSV 103 cm/s. LEFT: CCA: Atherosclerosis. PSV 74 cm/s. ICA: Atherosclerosis of the proximal ICA. PSV 89 cm/s. EDV 42 cm/s. ICA/CCA (systolic) ratio: 1.2. ECA: Patent. PSV 108 cm/s. Bilateral antegrade flow within the vertebral arteries. Blood pressure: Not performed. Brachial: Right: mmHg, Left: mmHg. Reference ranges: Stenosis measurements are compared to reference velocity parameters by the Society of Radiologists in Ultrasound (SRU) consensus and Sonographic NASCET index (S-NASCET). * SRU Primary parameters: ICA PSV <125 cm/s = normal or less than 50% stenosis ; ICA PSV 125-230 cm/s = 50-69% stenosis; ICA PSV >230 cm/s = greater than or equal to 70% stenosis. * SRU Additional parameters: ICA/CCA PSV ratio <2 = normal or less than 50% stenosis; ratio 2-4 = 50-69% stenosis; ratio >4 = greater than or equal to 70% stenosis. ICA EDV <40 cm/s = normal or less than 50% stenosis; ICA EDV 40-100 cm /s = 50-69% stenosis; ICA EDV >100 cm/s = greater than or equal to 70% stenosis. * S-NASCET parameters: Deceleration spectral broadening + PSV <125 cm/s = less than 50% stenosis; pansystolic spectral broadening + PSV <125 cm/s = 16-49% stenosis; pansystolic spectral broadening + PSV >125 cm/s + EDV <110 cm/s or ICA /CCA PSV ratio 2-4 = 50-69% stenosis; pansystolic spectral broadening + PSV > 270 cm/s OR EDV >110 cm/s OR ICA/CCA PSV ratio >4 = 70-79% stenosis; EDV >140 cm /s = 80-99% stenosis. IMPRESSION: 1. Atherosclerosis without hemodynamically significant stenosis in the carotid arteries. Electronically signed by: Peterson Dyer M.D. 10/08/2018 2:01 PM Transthoracic echocardiogram 10/08/2018 Interpretation summary: Left ventricular systolic function is normal at 65-70% Right ventricular systolic pressure is normal No significant valvular heart disease There appears to be some dyskinesis of the basal posterior wall No hemodynamically significant valvular aortic stenosis although the aortic valve is not well visualized Ventricular systolic pressure is normal _ (1) Ovarian cancer Laterality: unspecified laterality Qualified Code(s): C56.9 - Malignant neoplasm of unspecified ovary (2) Diarrhea Diarrhea type: unspecified type Qualified Code(s): R19.7 - Diarrhea, unspecified (3) Leukocytosis Leukocytosis type: unspecified Qualified Code(s): D72.829 - Elevated white blood cell count, unspecified (4) Syncope Encounter type: Syncope type: unspecified Qualified Code(s): R55 - Syncope and collapse
[2018-10-08] MEDS ORDERED: SIMETHICONE 80 MG CHEW PO PRN (12:27)
[2018-10-08] MEDS ORDERED: PERFLUTREN LIPID MICROSPHERE (DEFINITY) IV ONE (13:30)
--- NOTE | 2018-10-08 14:02 | Ultrasound Report ---
US carotid doppler BI CLINICAL HISTORY: 53 years-old Female presenting with Syncope / Collapse. TECHNIQUE: Real-time grayscale and color and spectral Doppler ultrasound imaging of the bilateral car otid arteries was performed. Stenosis measurements were based on NASCET-like criteria (distal lumen d iameter as the denominator for stenosis measurement). COMPARISON: None. FINDINGS: RIGHT: Common carotid artery (CCA): Atherosclerosis. Peak systolic velocity (PSV) 78 cm/s. Internal carotid artery (ICA): Atherosclerosis of the proximal ICA. PSV 79 cm/s. End diastolic veloci ty (EDV) 31 cm/s. ICA/CCA (systolic) ratio: 1.0. External carotid artery (ECA): Patent. PSV 103 cm/s. LEFT: CCA: Atherosclerosis. PSV 74 cm/s. ICA: Atherosclerosis of the proximal ICA. PSV 89 cm/s. EDV 42 cm/s. ICA/CCA (systolic) ratio: 1.2. ECA: Patent. PSV 108 cm/s. Bilateral antegrade flow within the vertebral arteries. Blood pressure: Not performed. Brachial: Right: mmHg, Left: mmHg. Reference ranges: Stenosis measurements are compared to reference velocity parameters by the Society of Radiologists in Ultrasound (SRU) consensus and Sonographic NASCET index (S-NASCET). * SRU Primary parameters: ICA PSV <125 cm/s = normal or less than 50% stenosis; ICA PSV 125-230 cm/s = 50-69% stenosis; ICA PSV >230 cm/s = greater than or equal to 70% stenosis. * SRU Additional parameters: ICA/CCA PSV ratio <2 = normal or less than 50% stenosis; ratio 2-4 = 5 0-69% stenosis; ratio >4 = greater than or equal to 70% stenosis. ICA EDV <40 cm/s = normal or less t carter 50% stenosis; ICA EDV 40-100 cm/s = 50-69% stenosis; ICA EDV >100 cm/s = greater than or equal to 70% stenosis. * S-NASCET parameters: Deceleration spectral broadening + PSV <125 cm/s = less than 50% stenosis; pa nsystolic spectral broadening + PSV <125 cm/s = 16-49% stenosis; pansystolic spectral broadening + PS V >125 cm/s + EDV <110 cm/s or ICA/CCA PSV ratio 2-4 = 50-69% stenosis; pansystolic spectral broadeni ng + PSV >270 cm/s OR EDV >110 cm/s OR ICA/CCA PSV ratio >4 = 70-79% stenosis; EDV >140 cm/s = 80-99% stenosis. IMPRESSION: 1. Atherosclerosis without hemodynamically significant stenosis in the carotid arteries. Electronically signed by: Peterson Dyer M.D. 10/08/2018 2:01 PM
--- NOTE | 2018-10-08 18:19 | Discharge Summary ---
Date of Service October 08, 2018 Admission HPI Per Admitting Provider Patient is a 53yo female with history of ovarian cancer on chemotherapy ( Carboplatin/Taxol). She received her second chemotherapy treatment on 10/04/18 and had Neulasta on 10/05/18. Yesterday she began to feel quite ill - nausea, chills, sweats, body aches, poor appetite as well as 3 episodes of watery diarrhea. Reported to be dark green, foul smelling. No blood or mucus. + diffuse abdominal pain and bloating. She states that she felt very sleepy and "woozy" and thought she may have been hallucinating as well. The sleepiness and confusion began after taking Tramadol. Patient had an episode of syncope this AM. She was in the shower and remembers feeling "really weird". Her was helping her dry off when she slumped to the floor. She was out for 5-10 seconds. No CP/palpitations/seizure activity. Per review of outpatient records patient felt ill after receiving her first cycle of chemotherapy, specifically on day 3 and 4 after receiving Neulasta. She had bone pain and flu-like symptoms as well as constipation. Admission Exam (Per Admitting) Constitutional Physical Exam Vital Signs (Past 24 Hours): Last Vital Signs Temp 36.8 C 10/07/18 17:37 Pulse 83 10/07/18 17:37 Resp 16 10/07/18 17:37 BP 137/74 10/07/18 17:37 Pulse Ox 95 10/07/18 17:37 Physical Exam: General: patient resting comfortably, NAD, ill in appearance, AA&O x 4 Skin: warm, dry, intact, no rashes or lesions HEENT: NC/AT, PERRL, EOMI, anicteric sclera, conjunctiva without injection, external ear normal to inspection and nontender, nares patent, moist mucus membranes, dentition intact, no oropharyngeal lesions, neck supple, trachea midline, no LAD, no thyromegaly, no JVD Heart: +S1/S2, regular, no m/r/g Lungs: equal air entry bilaterally, no rales/rhonchi/wheezes Abd: +BS, soft, ND, diffusely tender with deep palpation, no rebound/guarding/ peritoneal signs, no masses/organomegaly/ascites Ext: warm, 2+ pulses in UE/LE bilaterally, no clubbing/cyanosis or edema Neuro: nonfocal, patient AA&O x 4, speech intact, no facial droop, moving all extremities on command with equal strength 5/5 Specialty Data Cardiology Transthoracic echocardiogram 10/08/2018 Interpretation summary: Left ventricular systolic function is normal at 65-70% Right ventricular systolic pressure is normal No significant valvular heart disease There appears to be some dyskinesis of the basal posterior wall No hemodynamically significant valvular aortic stenosis although the aortic valve is not well visualized Ventricular systolic pressure is normal Hospital Course (1) Syncope: EKG without abnormalities Bilateral carotid duplex negative for significant stenosis Echocardiogram with no significant cardiomyopathy or valvular disease Episode appears to be vasovagal May be associated with chemotherapy and Neulasta Advised patient to discuss with her oncologist (2) Diarrhea: No diarrhea for several days No melena or hematochezia No abdominal pain (3) Leukocytosis: No evidence of infection Most likely secondary to Neulasta administered 10/05/2018 Continue to follow outpatient with oncology (4) Dehydration: Patient is 4 L positive since admission Patient was ill and had diarrhea prior to admission Advised patient to continue with adequate oral intake No evidence of renal failure (5) Ovarian cancer: Completed second course of chemotherapy and received Neulasta 10/05/2018 Surgical resection with bilateral salpingo-oophorectomy Further management with outpatient oncology Discharge Instructions Patient advised to discuss syncope with her oncologist and her primary care provider Patient advised to have boyfriend present when showering in the event of dizziness or pre-syncope. F/U with PCP in the next 7 days Maintain adequate intake of fluids Avoid soda and caffeine. Complete abstention of tobacco products.
== END 2018-10-08 18:50 | disposition home or self-care (01) ==
LOC: 4E 10:59 → ED 10:59 → SUATTDRO 16:37 → 4E 17:06